=== PATIENT | female | born 1995 | race Caucasian/White ===

== ENCOUNTER → 2017-09-21 | Outpatient (CLI) | payer MEDICAID | LOC: M OUTALCOH 09:15 | DX: Z13.9 Encounter for screening, unspecified (principal); F10.10 Alcohol abuse, uncomplicated ==

== ENCOUNTER 2017-10-29 15:38 | Outpatient (RCR) | payer MEDICAID | END 2017-11-22 | LOC: M OUTALCOH 11-18 13:00 | DX: F10.10 Alcohol abuse, uncomplicated (principal) ==

== ENCOUNTER 2017-11-26 10:00 | Outpatient (RCR) | payer MEDICAID | END 2017-12-23 | LOC: M OUTALCOH 12-03 10:00 | DX: F10.10 Alcohol abuse, uncomplicated (principal) ==

== ENCOUNTER 2017-12-24 09:35 | Outpatient (RCR) | payer MEDICAID | END 2018-01-22 | LOC: M OUTALCOH 09:35 | DX: F10.10 Alcohol abuse, uncomplicated (principal) ==

== ENCOUNTER 2018-02-03 09:50 | Outpatient (RCR) | payer MEDICAID | END 2018-02-22 | LOC: M OUTALCOH 09:50 | PROVIDERS: ATTEND Psychiatry & Neurology Psychiatry | DX: F10.10 Alcohol abuse, uncomplicated (principal) ==